=== PATIENT | female | born 1955 | race Caucasian/White ===

== ENCOUNTER 2017-01-31 13:55 | Inpatient (IN) | payer MEDICARE, OTHER ==
[~2017-01-31] VITALS: Ht 157.5 cm; Wt 73.3 kg
[2017-01-31] VITALS (8 sets, daily range): BP systolic 92–135; BP diastolic 55–95
[~2017-01-31 13:55] MED LIST: ASPIR 8181 MG PO; BENADRYL ALLERG25 M1 PO; CARVEDILOL3.125 M1 PO; CARVEDILOL6.25 M1 PO; CETIRIZINE HYDR10 MG PO; COUMADIN2 MG PO; DIGOXIN0.125 M1 PO; FERROUS SULFAT325 M2 PO; FIORICET1 TAB PO; GLUCOTROL5 MG PO; JANUVIA100 M1 PO; LASIX40 MG PO; LEVOTHYROXIN0.075 M2 PO; LIPI20 PO; LOSARTAN POTASS25 M1 PO; METFORMIN HCL850 MG PO; OMEPRAZOLE DR20 M1 PO
[2017-01-31 14:25] LABS: BASOPHIL % 0.1 % (0-2); PLATELET COUNT 250 x10^3mcL (130-400)
[2017-01-31 14:53] LABS: CARBON DIOXIDE 23.6 mmol/L (21-32); CHLORIDE SERUM 101 mmol/L (98-107); CREATININE SERUM 0.7 mg/dL (0.6-1.0); GFR1 > 60 mL/min; GLUCOSE SERUM 179 mg/dL (74-106); POTASSIUM SERUM 3.8 mmol/L (3.5-5.1); SODIUM SERUM 137 mmol/L (136-145)
[2017-01-31 14:58] LABS: ALBUMIN 3.8 g/dL (3.4-5.0); ALKALINE PHOSPHATASE 74 U/L (46-116); ALT/SGPT 27 U/L (14-59); AST/SGOT 28 U/L (15-37); BILIRUBIN TOTAL 0.9 mg/dL (0.20-1.00); TOTAL PROTEIN, SERUM 7.5 g/dL (6.4-8.2)
[2017-01-31] MEDS ORDERED: XANAX0.5 MG PO (15:43)
[2017-01-31] MEDS ORDERED: ANORO ELLIPTA1 POW IH (15:43)
[2017-01-31] MEDS ORDERED: CARVEDILOL12.5 M1 PO (15:44)
[2017-01-31] MEDS ORDERED: DIGOXIN0.125 M1 PO (15:44)
[2017-01-31] MEDS ORDERED: LIPITOR20 MG PO (15:44)
[2017-01-31] MEDS ORDERED: ASPIR 8181 MG PO (15:44)
[2017-01-31] MEDS ORDERED: STOOL SOFTENER100 MG PO (15:45)
[2017-01-31] MEDS ORDERED: INVOKANA300 MG PO (15:45)
[2017-01-31] MEDS ORDERED: NATURAL IRON65 MG PO (15:45)
[2017-01-31] MEDS ORDERED: FUROSEMIDE40 MG PO (15:45)
[2017-01-31 15:46] LABS: CHOLESTEROL/HDL RATIO 2.5; MAGNESIUM 2.4 mg/dL (1.8-2.4); PHOSPHOROUS 4.5 mg/dL (2.5-4.9)
[2017-01-31] MEDS ORDERED: XOPENEX1.25 MG/3 NEB (15:46)
[2017-01-31] MEDS ORDERED: COMINH INH (15:46)
[2017-01-31] MEDS ORDERED: TIROSINT75 MC1 PO (15:47)
[2017-01-31] MEDS ORDERED: METFORMIN HCL1000 MG PO (15:47)
[2017-01-31] MEDS ORDERED: PHENAZOPYRIDIN200 M3 PO (15:47)
[2017-01-31] MEDS ORDERED: LOSARTAN POTASS25 M1 PO (15:47)
[2017-01-31] MEDS ORDERED: PROAIR RES117 MCG/Ac IH (15:48)
[2017-01-31] MEDS ORDERED: MIRALAX17 GM/Dose PO (15:48)
[2017-01-31] MEDS ORDERED: DELTASONE20 MG PO (15:48)
[2017-01-31] MEDS ORDERED: VICTOZA 3-0.6 MG/0.1 SQ (15:49)
[2017-01-31] MEDS ORDERED: [UNRECOGNIZED DRUG - CODE] PO (15:49)
[2017-01-31] MEDS ORDERED: COUMADIN2 MG PO (15:49)
[2017-01-31 15:54] LABS: T3 TOTAL 0.97 ng/mL
[2017-01-31 16:06] LABS: FREE T4 1.36 ng/dL (0.76-1.46); FREE THYROXINE INDEX 3.5 ug/dL (1.4-4.5); T4(THYROXINE) 9.7 ug/dL (4.7-13.3)
[2017-01-31 20:49] LABS: AMPHETAMINE QUAL UR NONE DETECTED (NEG <=1000)
[2017-01-31 21:27] LABS: UA SPECIFIC GRAVITY 1.015 (1.005-1.035); microscopic required? YES; urine erythrocyte TRACE (NEGATIVE)
[2017-02-01] VITALS (18 sets, daily range): BP systolic 91–128; BP diastolic 31–67
[2017-02-01 04:43] LABS: BASOPHIL % 0.1 % (0-2); PLATELET COUNT 235 x10^3mcL (130-400)
[2017-02-01 04:44] LABS: CARBON DIOXIDE 26.7 mmol/L (21-32); CHLORIDE SERUM 107 mmol/L (98-107); CREATININE SERUM 0.7 mg/dL (0.6-1.0); GFR1 > 60 mL/min; GLUCOSE SERUM 190 mg/dL (74-106); POTASSIUM SERUM 3.8 mmol/L (3.5-5.1); RED CELL DISTRIBUTION WIDTH 15.2 % (11.5-14.5); SODIUM SERUM 141 mmol/L (136-145)
[2017-02-01 04:51] LABS: ALBUMIN 3.3 g/dL (3.4-5.0)
[2017-02-02] VITALS (16 sets, daily range): BP systolic 84–131; BP diastolic 47–64
[2017-02-02 05:32] LABS: PLATELET COUNT 229 x10^3mcL (130-400)
[2017-02-02 05:33] LABS: BASOPHIL % 0 % (0-2); RED CELL DISTRIBUTION WIDTH 15.7 % (11.5-14.5)
[2017-02-02 05:52] LABS: ALBUMIN 3.4 g/dL (3.4-5.0); CALCIUM 8.4 mg/dL (8.5-10.1); CARBON DIOXIDE 27.5 mmol/L (21-32); CHLORIDE SERUM 107 mmol/L (98-107); CREATININE SERUM 0.6 mg/dL (0.6-1.0); GFR1 > 60 mL/min; GLUCOSE SERUM 214 mg/dL (74-106); POTASSIUM SERUM 4.5 mmol/L (3.5-5.1); SODIUM SERUM 141 mmol/L (136-145)
[2017-02-03] VITALS (18 sets, daily range): BP systolic 104–143; BP diastolic 50–84
[2017-02-03 05:47] LABS: BASOPHIL % 0.3 % (0-2); PLATELET COUNT 226 x10^3mcL (130-400)
[2017-02-03 05:58] LABS: CALCIUM 8.5 mg/dL (8.5-10.1); CARBON DIOXIDE 28.3 mmol/L (21-32); POTASSIUM SERUM 3.9 mmol/L (3.5-5.1)
[2017-02-03 06:03] LABS: RED CELL DISTRIBUTION WIDTH 15.6 % (11.5-14.5)
[2017-02-04] VITALS (15 sets, daily range): BP systolic 106–134; BP diastolic 50–69
[2017-02-04 05:01] LABS: PLATELET COUNT 221 x10^3mcL (130-400)
[2017-02-04 05:07] LABS: RED CELL DISTRIBUTION WIDTH 15.5 % (11.5-14.5)
[2017-02-04 05:19] LABS: CARBON DIOXIDE 29.8 mmol/L (21-32); CHLORIDE SERUM 102 mmol/L (98-107); CREATININE SERUM 0.6 mg/dL (0.6-1.0); GFR1 > 60 mL/min; GLUCOSE SERUM 152 mg/dL (74-106); SODIUM SERUM 135 mmol/L (136-145)
[2017-02-04 05:23] LABS: POTASSIUM SERUM 2.9 mmol/L (3.5-5.1)
[2017-02-05 03:30] VITALS: BP 125/66
[2017-02-05 04:46] LABS: BASOPHIL % 0.5 % (0-2); PLATELET COUNT 204 x10^3mcL (130-400); RED CELL DISTRIBUTION WIDTH 15.4 % (11.5-14.5)
[2017-02-05 05:06] LABS: CALCIUM 8.4 mg/dL (8.5-10.1); CARBON DIOXIDE 30.6 mmol/L (21-32); CHLORIDE SERUM 108 mmol/L (98-107); CREATININE SERUM 0.5 mg/dL (0.6-1.0); GFR1 > 60 mL/min; GLUCOSE SERUM 77 mg/dL (74-106); POTASSIUM SERUM 3.5 mmol/L (3.5-5.1); SODIUM SERUM 144 mmol/L (136-145)
[2017-02-05 08:00] VITALS: BP 130/63
[2017-02-05 09:00] VITALS: BP 133/52
[2017-02-05 15:05] VITALS: BP 95/52
[2017-02-05 18:40] VITALS: BP 101/49
[2017-02-05 20:34] VITALS: BP 108/54
[2017-02-06 05:28] VITALS: BP 94/54
[2017-02-06 05:52] LABS: BASOPHIL % 0.3 % (0-2); PLATELET COUNT 216 x10^3mcL (130-400)
[2017-02-06 06:14] LABS: CALCIUM 8.4 mg/dL (8.5-10.1); CARBON DIOXIDE 31.6 mmol/L (21-32); CHLORIDE SERUM 105 mmol/L (98-107); CREATININE SERUM 0.5 mg/dL (0.6-1.0); GFR1 > 60 mL/min; GLUCOSE SERUM 111 mg/dL (74-106); POTASSIUM SERUM 4.4 mmol/L (3.5-5.1); SODIUM SERUM 139 mmol/L (136-145)
[2017-02-06 06:23] LABS: RED CELL DISTRIBUTION WIDTH 14.8 % (11.5-14.5)
[2017-02-06 09:29] VITALS: BP 106/58
[2017-02-06 13:38] VITALS: BP 101/50
[2017-02-06] MEDS ORDERED: MEDDP PO (15:43)
[2017-02-06 16:02] VITALS: BP 101/50
== END 2017-02-06 17:16 | disposition home or self-care (01) | DRG 207 ==
LOC: ED 13:55 → IC 15:19 → DU 15:19 → IC 15:19 → EDBD 15:19 → IC 15:19 → DU 02-05 10:19
PROVIDERS: Emergency Medicine; Family Medicine; ADMIT Family Medicine
PROC: 0BH17EZ Insertion of Endotracheal Airway into Trachea, Via Natural or Artificial Opening (ICD-10-PCS; principal; 2017-01-31)
PROC: 5A1955Z Respiratory Ventilation, Greater than 96 Consecutive Hours (ICD-10-PCS; 2017-01-31)
PROC: 05HM33Z Insertion of Infusion Device into Right Internal Jugular Vein, Percutaneous Approach (ICD-10-PCS; 2017-01-31)
PROC: B543ZZA Ultrasonography of Right Jugular Veins, Guidance (ICD-10-PCS; 2017-01-31)
DX: J96.01 Acute respiratory failure with hypoxia (principal); N17.0 Acute kidney failure with tubular necrosis; E44.0 Moderate protein-calorie malnutrition; I42.0 Dilated cardiomyopathy; T88.6XXA Anaphylactic reaction due to adverse effect of correct drug or medicament properly administered, initial encounter; E87.4 Mixed disorder of acid-base balance; I48.92 Unspecified atrial flutter; J45.901 Unspecified asthma with (acute) exacerbation; I48.2 Chronic atrial fibrillation; E11.65 Type 2 diabetes mellitus with hyperglycemia; E03.9 Hypothyroidism, unspecified; I10 Essential (primary) hypertension; E78.5 Hyperlipidemia, unspecified; E66.8 Other obesity; Z95.0 Presence of cardiac pacemaker; Z79.82 Long term (current) use of aspirin; Z95.2 Presence of prosthetic heart valve; Z68.30 Body mass index [BMI] 30.0-30.9, adult; Z95.1 Presence of aortocoronary bypass graft; Z79.01 Long term (current) use of anticoagulants; Z79.84 Long term (current) use of oral hypoglycemic drugs
CPT/HCPCS: 36556; 36600; 80307; 82962; 83880; 84439; 92610-GN; 97110-GP; 97116-GP; 97530-GP; A4628; C9113; J0171; J0330; J1200; J1642; J1644; J1815; J1885; J1940; J1956; J2060; J2270; J2405; J2543; J2704; J2920; J2930; J3105; J3475; J3480; J3490; J7030; J7040; J7613; J7620; J7633; J7644; Q0092

== ENCOUNTER 2017-10-06 08:32 | Inpatient (IN) | payer MEDICARE, OTHER ==
[~2017-10-06] VITALS: Ht 154.9 cm; Wt 71.3 kg
[~2017-10-06 08:32] MED LIST changes: +ANORO ELLIPTA1 POW IH; +CARVEDILOL12.5 M1 PO; +COMINH INH; +DELTASONE20 MG PO; +FUROSEMIDE40 MG PO; +INVOKANA300 MG PO; +LIPITOR20 MG PO; +MEDDP PO; +METFORMIN HCL1000 MG PO; +MIRALAX17 GM/Dose PO; +NATURAL IRON65 MG PO; +PHENAZOPYRIDIN200 M3 PO; +PROAIR RES117 MCG/Ac IH; +STOOL SOFTENER100 MG PO; +TIROSINT75 MC1 PO; +VICTOZA 3-0.6 MG/0.1 SQ; +XANAX0.5 MG PO; +XOPENEX1.25 MG/3 NEB; +[UNRECOGNIZED DRUG - CODE] PO
[2017-10-06 08:42] VITALS: Ht 154.9 cm; Wt 71.3 kg
[2017-10-06 09:39] LABS: BASOPHIL % 0.5 % (0-2); PLATELET COUNT 174 x10^3mcL (130-400)
[2017-10-06 09:44] LABS: RED CELL DISTRIBUTION WIDTH 14.6 % (11.5-14.5)
[2017-10-06 10:05] LABS: CALCIUM 8.7 mg/dL (8.5-10.1); CHLORIDE SERUM 99 mmol/L (98-107); CREATININE SERUM 0.5 mg/dL (0.6-1.0); GFR1 > 60 mL/min; GLUCOSE SERUM 146 mg/dL (74-106); POTASSIUM SERUM 4.2 mmol/L (3.5-5.1); SODIUM SERUM 137 mmol/L (136-145)
[2017-10-06 10:06] LABS: CK-MB < 0.5 ng/mL (0-3.6); CREATINE KINASE 44 U/L (26-192); T3 TOTAL 1.02 ng/mL
[2017-10-06 10:09] LABS: ALBUMIN 3.7 g/dL (3.4-5.0); ALKALINE PHOSPHATASE 67 U/L (46-116); ALT/SGPT 30 U/L (14-59); AST/SGOT 25 U/L (15-37); C REACTIVE PROTEIN 4.6 mg/dL (<=0.9); TOTAL PROTEIN, SERUM 7.7 g/dL (6.4-8.2)
[2017-10-06] MEDS ORDERED: LASIX40 MG PO (10:18)
[2017-10-06] MEDS ORDERED: ASPIRIN ADULT L81 M3 PO (10:30)
[2017-10-06 10:32] LABS: FREE T4 1.41 ng/dL (0.76-1.46); FREE THYROXINE INDEX 3.8 ug/dL (1.4-4.5); T4(THYROXINE) 9.9 ug/dL (4.7-13.3)
[2017-10-06] MEDS ORDERED: AMOXICILLIN500 M1 PO (10:51)
[2017-10-06] MEDS ORDERED: DUONEB HHN (10:59)
[2017-10-06 11:00] VITALS: BP 104/49
[2017-10-06] MEDS ORDERED: OMEGA-31000 MG PO (11:02)
[2017-10-06] MEDS ORDERED: PYRIDIUM100 MG PO (11:05)
[2017-10-06] MEDS ORDERED: PROAIR HFA8.5 GM INH (11:12)
[2017-10-06] MEDS ORDERED: VITAMIN D32000 I2 PO (11:17)
[2017-10-06 11:32] LABS: ERYTHROCYTE SED RATE 29 mm/hr (0-30)
[2017-10-06 11:48] VITALS: BP 111/49
[2017-10-06 12:11] LABS: AMPHETAMINE QUAL UR NONE DETECTED (NEG <=1000)
[2017-10-06 13:45] LABS: microscopic required? NO
[2017-10-06 13:45] LABS: CHOLESTEROL/HDL RATIO 2.4; MAGNESIUM 2.5 mg/dL (1.8-2.4); PHOSPHOROUS 3.5 mg/dL (2.5-4.9)
[2017-10-06 13:49] LABS: urine erythrocyte NEGATIVE (NEGATIVE)
[2017-10-06 14:02] VITALS: BP 97/48
[2017-10-06 14:36] VITALS: BP 111/49
[2017-10-06 17:30] VITALS: BP 116/46
[2017-10-06 21:24] VITALS: BP 99/43
[2017-10-07 03:45] LABS: BASOPHIL % 0.6 % (0-2); PLATELET COUNT 195 x10^3mcL (130-400); RED CELL DISTRIBUTION WIDTH 13.5 % (11.5-14.5)
[2017-10-07 04:00] LABS: CALCIUM 8.6 mg/dL (8.5-10.1); CARBON DIOXIDE 28.1 mmol/L (21-32); CHLORIDE SERUM 105 mmol/L (98-107); CREATININE SERUM 0.5 mg/dL (0.6-1.0); GFR1 > 60 mL/min; GLUCOSE SERUM 132 mg/dL (74-106); MAGNESIUM 2.6 mg/dL (1.8-2.4); PHOSPHOROUS 4.6 mg/dL (2.5-4.9); SODIUM SERUM 140 mmol/L (136-145)
[2017-10-07 04:49] VITALS: BP 112/53
[2017-10-07 08:20] VITALS: BP 119/56
[2017-10-07] MEDS ORDERED: PROAIR HFA8.5 GM INH (10:53)
[2017-10-07] MEDS ORDERED: CEPACOL SORE TH MM (11:00)
[2017-10-07] MEDS ORDERED: BD LACTINEX1.4 MG PO (11:08)
[2017-10-07] MEDS ORDERED: LEVOFLOXACIN750 M1 PO (11:08)
[2017-10-07 13:02] VITALS: BP 110/52
[2017-10-07] MEDS ORDERED: AUGMENTIN 875-1 EACH PO (15:08)
== END 2017-10-07 15:30 | disposition home or self-care (01) | DRG 291 ==
LOC: ED 08:32 → DU 10:36
PROVIDERS: Specialist; ADMIT Family Medicine
DX: I11.0 Hypertensive heart disease with heart failure (principal); N17.0 Acute kidney failure with tubular necrosis; J44.1 Chronic obstructive pulmonary disease with (acute) exacerbation; D68.69 Other thrombophilia; I50.43 Acute on chronic combined systolic (congestive) and diastolic (congestive) heart failure; I42.9 Cardiomyopathy, unspecified; E83.41 Hypermagnesemia; E11.65 Type 2 diabetes mellitus with hyperglycemia; I25.10 Atherosclerotic heart disease of native coronary artery without angina pectoris; E78.5 Hyperlipidemia, unspecified; M94.0 Chondrocostal junction syndrome [Tietze]; E03.9 Hypothyroidism, unspecified; I48.2 Chronic atrial fibrillation; Z95.2 Presence of prosthetic heart valve; Z68.30 Body mass index [BMI] 30.0-30.9, adult; Z95.1 Presence of aortocoronary bypass graft; Z87.891 Personal history of nicotine dependence; Z79.01 Long term (current) use of anticoagulants; Z95.810 Presence of automatic (implantable) cardiac defibrillator
CPT/HCPCS: 36600; 83880; 84439; 87804; J1815; J2543; J2920; J2930; J3490; J7030; J7620; Q0092

== ENCOUNTER 2018-02-03 15:33 | Emergency (ER) | payer MEDICARE, OTHER ==
[~2018-02-03] VITALS: Ht 152.4 cm; Wt 72.6 kg
[~2018-02-03 15:33] MED LIST changes: +AMOXICILLIN500 M1 PO; +ASPIRIN ADULT L81 M3 PO; +AUGMENTIN 875-1 EACH PO; +BD LACTINEX1.4 MG PO; +CEPACOL SORE TH MM; +DUONEB HHN; +LEVOFLOXACIN750 M1 PO; +OMEGA-31000 MG PO; +PROAIR HFA8.5 GM INH; +PYRIDIUM100 MG PO; +VITAMIN D32000 I2 PO
[2018-02-03 15:37] VITALS: Ht 152.4 cm; Wt 72.6 kg
[2018-02-03] MEDS ORDERED: LEVOTHYROXINE0.05 M2 PO (15:54)
[2018-02-03] MEDS ORDERED: LEVOTHYROXINE0.05 M2 GT (15:54)
[2018-02-03] MEDS ORDERED: AMOXICILLIN500 MG PO (15:57)
[2018-02-03] MEDS ORDERED: PYR100 PO (16:00)
[2018-02-03] MEDS ORDERED: ANORO ELLIPTA1 POW IH (16:00)
[2018-02-03] MEDS ORDERED: DIGOXIN0.125 M1 PO (16:00)
[2018-02-03] MEDS ORDERED: LANTUS SOLOS100 U/M1 SC (16:01)
[2018-02-03] MEDS ORDERED: CHERATUSSIN DA473 ML PO (16:01)
[2018-02-03] MEDS ORDERED: METFORMIN HCL1000 MG PO (16:01)
[2018-02-03 16:24] LABS: BASOPHIL % 0.5 % (0-2); PLATELET COUNT 258 x10^3mcL (130-400)
[2018-02-03 16:27] LABS: CALCIUM 8.9 mg/dL (8.5-10.1); CARBON DIOXIDE 30.8 mmol/L (21-32); CREATININE SERUM 1.2 mg/dL (0.6-1.0)
[2018-02-03 16:35] LABS: RED CELL DISTRIBUTION WIDTH 15.3 % (11.5-14.5)
[2018-02-03 17:46] VITALS: BP 117/53
== END 2018-02-03 17:46 | disposition home or self-care (01) ==
LOC: ED 15:33
PROVIDERS: Emergency Medicine
DX: L03.032 Cellulitis of left toe (principal); E11.9 Type 2 diabetes mellitus without complications; J45.909 Unspecified asthma, uncomplicated; I11.0 Hypertensive heart disease with heart failure; I50.9 Heart failure, unspecified; J44.9 Chronic obstructive pulmonary disease, unspecified; Z88.1 Allergy status to other antibiotic agents
CPT/HCPCS: J0295; J3490; J7030